=== PATIENT | male | born 1995 | race Two or more races ===

== ENCOUNTER 2022-03-15 21:06 | Emergency (ER) | payer MEDICAID ==
[~2022-03-15] VITALS: Ht 157.5 cm; Wt 71.8 kg
[2022-03-15 21:07] VITALS: BP 143/84
[2022-03-15] MEDS ORDERED: sulfamethoxazole/trimethoprim DS (800/160mg) tablet PO ONE (22:25)
[2022-03-15] MEDS ORDERED: cephalexin 500mg capsule PO ONE (22:25)
[2022-03-15] MEDS ORDERED: CEPH-585 PO (22:27)
[2022-03-15] MEDS ORDERED: SULF1TAB45 PO (22:27)
== END 2022-03-15 22:36 | disposition home or self-care (01) ==
LOC: VAS 21:07
DX: L03.114 Cellulitis of left upper limb (principal); Z79.2 Long term (current) use of antibiotics; Z79.899 Other long term (current) drug therapy
CPT/HCPCS: 82948; 99283

== ENCOUNTER 2022-11-05 17:46 | Emergency (ER) | payer MEDICAID ==
[~2022-11-05] VITALS: Ht 157.5 cm; Wt 72.0 kg
[~2022-11-05 17:46] MED LIST: CEPH-585 PO
[2022-11-05] MEDS ORDERED: CEPH-585 PO (21:16)
[2022-11-05 21:24] VITALS: BP 145/89
== END 2022-11-05 21:27 | disposition home or self-care (01) ==
LOC: ER 17:47
DX: L03.116 Cellulitis of left lower limb (principal); Z79.899 Other long term (current) drug therapy
CPT/HCPCS: 73610; 99283